=== PATIENT | male | born 1935 | race Two or more races ===

== ENCOUNTER 2016-05-01 07:12 | Day surgery (SDC) | payer OTHER ==
[2016-05-01] VITALS (12 sets, daily range): BP systolic 146–178; BP diastolic 75–99; PULSE 52–69; RESP 14–19; Ht 175.3 cm; Wt 106.3 kg
[~2016-05-01] VITALS: Ht 175.3 cm; Wt 106.3 kg
[~2016-05-01 07:12] MED LIST: ASPI81TA3 PO; CHOL2000 PO; DORZ10DR6 BOTH EYES; NITR0.4T6 SL
--- NOTE | 2016-05-01 08:09 | PREOPHP ---
DATE OF ADMISSION: 05/01/2016 HISTORY OF PRESENT ILLNESS: This 80-year-old patient is admitted for elective cataract surgery of t he right eye. The patient previously underwent cataract surgery of the left eye 5 months ago with g ood visual result. The patient also has a history of chronic open angle glaucoma controlled with Ti molol drops. The patient has had a history of myocardial infarctions in 2012. CURRENT MEDICATIONS 1. Aspirin, which was discontinued 1 week prior to surgery. 2. Timolol ophthalmic. PHYSICAL EXAMINATION: Visual acuity best corrected is 20/200 in the right eye and 20/40 in the left eye. Slit lamp examination reveals nuclear sclerotic and posterior subcapsular cataract in the rig ht eye. The left eye has a posterior chamber intraocular lens in appropriate position. Applanation tonometry is 15 mmHg in both eyes. Examination of the retina is within normal limits. DIAGNOSIS: Posterior subcapsular cataract, right eye. PLAN: Cataract extraction with lens implant, right eye. The risks and alternatives to the surgery have been discussed with the patient and patient has opted to proceed with surgery with the hopes of improvement of visual acuity leading to a greater ability to perform activities of daily living. Dictated By: MASON LEONE/RAYMOND Conf#: [id number] DID#: [id number]
[2016-05-01] MEDS ORDERED: DICLOFENAC 0.1% 2.5 ML OPH OPER SCH (09:00)
[2016-05-01] MEDS ORDERED: TROPICAMIDE 1% 2 ML OPH OPER SCH (09:00)
[2016-05-01] MEDS ORDERED: CIPROFLOXACIN 0.3% 2.5 ML OPH OPER SCH (09:00)
[2016-05-01] MEDS ORDERED: CYCLOPENTOLATE/PHENYLEPH 2 ML OPH OPER SCH (09:00)
[2016-05-01] MEDS ORDERED: BENA20TA48 PO (09:32)
[2016-05-01] MEDS ORDERED: METO75TA PO (09:32)
[2016-05-01] MEDS ORDERED: ATOR40TA68 PO (09:32)
[2016-05-01] MEDS ORDERED: PROPOFOL 20 ML ONE (10:15)
[2016-05-01] MEDS ORDERED: LIDOCAINE 2% (SDV) 5 ML INJ ONE (10:16)
[2016-05-01] MEDS ORDERED: ONDANSETRON 4 MG INJ IV PRN (10:30)
[2016-05-01] MEDS ORDERED: LABETALOL HCL 20MG INJ IV PRN (10:30)
[2016-05-01] MEDS ORDERED: ATROPINE 1 MG/10 ML SYRINGE IV PRN (10:30)
[2016-05-01] MEDS ORDERED: OXYCODONE/ACETAMINOPHEN (5/325) TAB PO PRN ×3 (10:30→13:00)
[2016-05-01] MEDS ORDERED: EPHEDrine SULFATE 50 MG/5 ML SYG IV PRN (10:30)
[2016-05-01] MEDS ORDERED: DIPHENHYDRAMINE 50 MG INJ IV PRN (10:30)
[2016-05-01] MEDS ORDERED: HYDROmorphONE (0.2 MG/ML) 10ML SYG IV PRN ×3 (10:30)
[2016-05-01] MEDS ORDERED: MIDAZOLAM 1 MG/ML 2 ML INJ IV PRN (10:30)
[2016-05-01] MEDS ORDERED: FENTAnyl 50 MCG/ML VIAL IV PRN ×2 (10:30)
[2016-05-01] MEDS ORDERED: morphine (1 MG/ML) 10ML SYRINGE IV PRN ×3 (10:30)
[2016-05-01] MEDS ORDERED: MEPERIDINE 25 MG INJ IV PRN (10:30)
[2016-05-01] MEDS ORDERED: hydrALAzine 20 MG INJ IV PRN (10:30)
[2016-05-01] MEDS ORDERED: CARBACHOL 0.01% 1.5 ML OPH INJ ONE (10:50)
[2016-05-01] MEDS ORDERED: LIDOCAINE 4% (MPF) 5 ML INJ ONE (10:50)
[2016-05-01] MEDS ORDERED: HYALURONATE/CHONDROITIN 1ML OPH INJ ONE (10:51)
[2016-05-01] MEDS ORDERED: DEXAMETHASONE 4 MG/ML 1 ML INJ ONE (10:51)
[2016-05-01] MEDS ORDERED: CARBACHOL 0.01% 1.5 ML OPH INJ IO ONE (11:00)
[2016-05-01] MEDS ORDERED: DEXAMETHASONE 4 MG/ML 1 ML INJ INJ ONE (11:00)
[2016-05-01] MEDS ORDERED: HYALURONATE/CHONDROITIN 1ML OPH INJ IO ONE (11:00)
[2016-05-01] MEDS ORDERED: CEFAZOLIN 1 GM INJ INJ ONE (11:00)
[2016-05-01] MEDS ORDERED: FENTAnyl 50 MCG/ML VIAL ONE (11:25)
--- NOTE | 2016-05-01 12:03 | OPR ---
DATE OF OPERATION: 05/01/2016 PREOPERATIVE DIAGNOSIS: Cataract, right eye. POSTOPERATIVE DIAGNOSIS: Cataract, right eye. OPERATION PERFORMED: Cataract extraction with lens implant, right eye. SURGEON: Mason Cohen MD ANESTHESIOLOGIST: Patel Keith MD PREOPERATIVE DIAGNOSIS: Cataract, right eye. POSTOPERATIVE DIAGNOSIS: Cataract, right eye. SURGEON: Mason Cohen MD ANESTHESIA: Local standby. ANESTHESIOLOGIST: Patel Keith MD OPERATION: Phacoemulsification with posterior chamber intraocular lens implant, right eye. PROCEDURE: The patient was brought to the operating room and placed on the table with an IV in plac e and the patient attached to an court recording monitor. Oxygen was given via face mask. After some intravenous sedation was administered, local anesthesia was given using Xylocaine 2% with epinephrine, mixed with Marcaine 0.5%. This was given in a lid block and retrobulbar injection. The patient was then prepped and draped in the usual sterile manner. A wire lid speculum was inserted between the lids of the right eye. A Superblade was used to enter t he anterior chamber at the corneoscleral limbus at the 10:30 o'clock position. A separate incision w as made using a 3.0-mm keratome which entered the corneoscleral junction at the 12 o'clock position. Through this 3-mm opening, an irrigating cystitome was introduced into the anterior chamber. The ch arian was filled with Viscoat and an anterior capsulotomy was performed. Balanced salt solution was then used for hydrodissection of the lens. A phacoemulsification handpiece was then brought into th e field and introduced into the anterior chamber. The lens nucleus was emulsified using a deep groov e and cracking the nucleus into quadrants. Following this, each quadrant was aspirated and emulsifie d at the pupillary margin. After this was completed, the irrigation/aspiration handpiece was brought to the field, introduced i nto the posterior chamber, and the lens cortical material was removed. A film remained on the purchasing officer ior capsule. This was vacuumed off to some extent using the kittitian setting on the irrigation aspira tion handpiece. However, some residual film remained in the central posterior capsule. If this is a visual problem, it will be dealt with using a Yag laser to perform a capsulotomy. When this was completed, additional Viscoat was injected into the anterior and posterior chambers. The 3-mm opening had its internal lips enlarged, and then the posterior chamber intraocular lens brain suring ____ diopters ([employer]) was then injected into the posterior chamber usin g the lens injector system. After the leading haptic was introduced into the capsular bag and the le ns optic was present in the center of the eye, the injector was removed and the trailing haptic was grasped with non-toothed forceps and introduced into the capsular fold superiorly. A Sinskey hook wa s then used to rotate the intraocular lens so that the lips were oriented in the horizontal meridian . One 10-0 nylon suture was placed across the wound. Prior to tying, the irrigation/aspiration handpiece was reintroduced into the anterior chamber to re move the Viscoat. Miochol was instilled to constrict the pupil, and then the 10-0 nylon suture was t ied. The ends were cut short and then the knot was buried. Then, 0.5 mL of dexamethasone and 0.5 mL of Ancef were injected into the sub-Tenon space in the infe rior fornix. Ciloxan drops were then placed on the surface of the eye. The speculum was removed and a patch was applied. The patient then left the operating room in satisfactory condition. Dictated By: MASON LEONE/RAYMOND Conf#: [id number] DID#: [id number]
== END 2016-05-01 15:00 | disposition home or self-care (01) ==
LOC: SDS 07:12
PROVIDERS: ATTEND Ophthalmology
DX: H25.11 Age-related nuclear cataract, right eye (principal); I10 Essential (primary) hypertension; I25.2 Old myocardial infarction; F32.9 Major depressive disorder, single episode, unspecified; N40.0 Benign prostatic hyperplasia without lower urinary tract symptoms
CPT/HCPCS: 66984; J0690; J1100; J3010; V2632; Z7512; Z7610

== ENCOUNTER 2016-05-16 14:12 | Emergency (ER) | payer OTHER ==
[~2016-05-16] VITALS: Ht 162.6 cm; Wt 107.0 kg
[~2016-05-16 14:12] MED LIST changes: +ATOR40TA68 PO; +BENA20TA48 PO; -CHOL2000 PO; -DORZ10DR6 BOTH EYES; +METO75TA PO
[2016-05-16 14:54] VITALS: Ht 162.6 cm; Wt 107.0 kg
--- NOTE | 2016-05-16 18:25 | RADRPT ---
PROCEDURE: X-RAY LEFT KNEE CLINICAL INDICATION: General pain, twisted knee. TECHNIQUE: Three views of the left knee are available for review. COMPARISON: None available FINDINGS: There is mild medial joint space narrowing and there are small osteophytes indicative of arthrosis. No evidence for joint effusion. No evidence for fracture or erosive change. There is mild patello femoral arthrosis seen as asymmetrical joint space narrowing and small osteophytes. IMPRESSION: 1. No evidence for fracture. 2. Mild patellofemoral medial compartment arthrosis. RPTAT: XX .Dashawn Jones MD, Date Time Electronically viewed and signed by .Dashawn Jones MD, on 05/16/2016 18:24 .T/
[2016-05-16] MEDS ORDERED: IBUP400T22 PO (18:35)
--- NOTE | 2016-05-16 18:39 | ERD ---
ER Documentation Chief Complaint Date/Time DATE: 05/16/16 TIME: 18:36 Chief Complaint left knee pain,verbalized he twisted it. HPI Patient is a 80-year-old male who presents after twisting his knee yesterday. He denies any fall. He denies any head injury or KO. He denies any preceding chest pain, dizziness, headache, or loss of balance. Pain is 8 out of 10. He is not taking any medication for this. He is able to ambulate slowly. ROS All systems reviewed and are negative except as per history of present illness. Medications Home Meds Active Scripts Ibuprofen* (Motrin*) 400 Mg Tab, 400 MG PO Q6H Y for PAIN AND OR ELEVATED TEMP, #30 TAB Prov:KEANU SANTAMARIA PA-C 05/16/16 Reported Medications Benazepril Hcl* (Benazepril Hcl*) 20 Mg Tablet, 20 MG PO BID, #60 TAB 05/01/16 Atorvastatin* (Atorvastatin*) 40 Mg Tablet, 40 MG PO QHS, #30 TAB 05/01/16 Metoprolol Tartrate (Metoprolol Tartrate) 75 Mg Tablet, 50 MG PO, TAB 05/01/16 Nitroglycerin* (Nitroglycerin* SL) 0.4 Mg Tab.subl, 0.4 MG SL Q5MIN Y for CHEST PAIN, BOTTLE 07/18/14 Aspirin* (Aspirin* Chew) 81 Mg Tab.chew, 81 MG PO DAILY, TAB.CHEW 07/18/14 Allergies Allergies: Coded Allergies: losartan (Verified Allergy, Severe, LIPS SWELLING, 05/16/16) PMhx/Soc History of Surgery: Yes (b/l eye catarct surgery , stent ) Anesthesia Reaction: No Hx Neurological Disorder: Yes (vertigo) Hx Respiratory Disorders: No Hx Cardiac Disorders: Yes (htn and hyperlipidemia with past heart attack 2012) Hx Psychiatric Problems: Yes (depression) Hx Miscellaneous Medical Probl: No Hx Alcohol Use: No Hx Substance Use: No Hx Tobacco Use: No Smoking Status: Never smoker FmHx Family History: No diabetes Physical Exam Vitals Vital Signs Date Time Temp Pulse Resp B/P Pulse Ox O2 Delivery O2 Flow Rate FiO2 05/16/16 14:54 97.8 75 18 158/93 98 Physical Exam General: well developed, well nourished, alert, nontoxic, no distress Head: normocephalic, atraumatic Neck: Supple, nontender, no lymphadenopathy, no midline tenderness Respiratory: Clear to auscaultation bilaterally, speaks in full sentences, no use of accesory muscles or labored breathing, no rales, ronchi, or wheezing Cardiovascular: RRR, No murmurs Back: no midline tenderness, no step offs or bony abnormalities, sensation to light touch in tact Extremities: Left knee: No erythema, no edema, no warmth, no tenderness throughout, sensation to light touch and intact, no bony abnormalities Procedures/MDM 80-year-old male has left knee pain after twisting it. He is neurovascular intact. There is no evidence of infection or septic joint. No evidence of DVT. X-ray was ordered which showed no acute fracture dislocation. Patient is able to be safely discharged home he was given copy of x-ray report as well as prescription for Motrin for pain. Recommended this patient follow up with her primary care doctor within 48 hours or return to the emergency room for any worsening of symptoms. However this time I do believe there is suitable for outpatient management. I answered all their questions and they agreed with the plan and were discharged home. Departure Diagnosis: Primary Impression: Knee sprain Condition: Stable Patient Instructions: Knee Sprain Additional Instructions: Call your primary care doctor TOMORROW for an appointment during the next 1-2 days.See the doctor sooner or return here if your condition worsens before your appointment time. KEANU SANTAMARIA PA-C May 16, 2016 18:39
[2016-05-16 19:48] VITALS: BP 142/87; PULSE 80; RESP 18; TEMP 98.4
[2016-05-16] MEDS ORDERED: HYDROCODONE/APAP (5/325) TAB PO ONE (20:00)
== END 2016-05-16 19:50 | disposition home or self-care (01) ==
LOC: FTE 14:12
DX: S83.92XA Sprain of unspecified site of left knee, initial encounter (principal); I10 Essential (primary) hypertension; X50.1XXA Overexertion from prolonged static or awkward postures, initial encounter; Y92.9 Unspecified place or not applicable; Z79.82 Long term (current) use of aspirin
CPT/HCPCS: 73562; Z7502; Z7610

== ENCOUNTER 2016-07-16 14:41 | Inpatient (IN) | payer OTHER ==
[~2016-07-16] VITALS: Ht 175.3 cm; Wt 104.0 kg
[~2016-07-16 14:41] MED LIST changes: +IBUP400T22 PO
[2016-07-16 17:49] LABS: ADD SCAN DIFF NO
[2016-07-16 17:52] LABS: BASOPHILS % 0.4 % (0.0-2.0); EOSINOPHILS # 0.1 10^3/ul (0.0-0.5); EOSINOPHILS % 1.6 % (0.0-7.0); HEMOGLOBIN 16.9 g/dl (14.0-18.0); LYMPHOCYTES # 1.5 10^3/ul (0.8-2.9); LYMPHOCYTES % 26.1 % (15.0-51.0); MEAN CORPUSCULAR HEMOGLOBIN 28.2 pg (29.0-33.0); MEAN CORPUSCULAR HGB CONC 32.5 g/dl (32.0-37.0); MEAN CORPUSCULAR VOLUME 86.8 fl (82.0-101.0); MEAN PLATELET VOLUME 9.6 fl (7.4-10.4); MONOCYTE # 0.4 10^3/ul (0.3-0.9); MONOCYTES % 7.9 % (0.0-11.0); NEUTROPHIL # 3.6 10^3/ul (1.6-7.5); NEUTROPHILS % 63.8 % (39.0-77.0); PLATELET COUNT 226 10^3/UL (140-415); RED BLOOD COUNT 5.99 10^6/ul (4.70-6.10); RED CELL DISTRIBUTION WIDTH 13.2 % (11.5-14.5); WHITE BLOOD COUNT 5.6 10^3/ul (4.8-10.8)
[2016-07-16 18:03] LABS: CHLORIDE 100 mmol/L (97-110)
[2016-07-16 18:04] LABS: POTASSIUM 3.7 mmol/L (3.5-5.1); SODIUM 142 mmol/L (135-144)
[2016-07-16 18:05] LABS: INR 0.93; PROTIME 12.5 Sec (12.2-14.2)
[2016-07-16 18:06] LABS: CREATININE 1.21 mg/dl (0.61-1.24); PARTIAL THROMBOPLASTIN TIME 30.7 Sec (25.0-35.0)
[2016-07-16 18:07] LABS: ANION GAP 17 (8-16); BLOOD UREA NITROGEN 20 mg/dl (7-20); CALCIUM 9.7 mg/dl (8.4-10.2); CARBON DIOXIDE 29 mmol/L (21-31); GLUCOSE 155 mg/dl (70-220)
[2016-07-16] MEDS ORDERED: AMLO-147 PO (18:07)
[2016-07-16] MEDS ORDERED: TAMS0.4C2 PO (18:07)
[2016-07-16] MEDS ORDERED: CHOL20003 PO (18:09)
[2016-07-16 18:20] LABS: TROPONIN-I < 0.012 ng/ml (0.00-0.12)
--- NOTE | 2016-07-16 18:59 | RADRPT ---
PROCEDURE: XR Chest. CLINICAL INDICATION: Shortness of breath. TECHNIQUE: A single portable view of the chest was obtained. COMPARISON: 11/22/2015 FINDINGS: The cardiomediastinal silhouette is within normal limits. The lung volumes are low with bibasilar co mpressive atelectasis. The remaining lungs and pleural spaces are clear. The soft tissues and osseo us structures are unremarkable. IMPRESSION: Low lung volumes with bibasilar compressive atelectasis. RPTAT: HPNM Physician Alexandra Date Time Electronically viewed and signed by Dave Hernandez Physician on 07/16/2016 18:59 /
[2016-07-16] MEDS ORDERED: ASPIRIN 325 MG TAB PO STA (19:40)
[2016-07-16] MEDS ORDERED: NITROGLYCERIN (SL) 0.4 MG TAB SL PRN (20:00)
[2016-07-16] MEDS ORDERED: ONDANSETRON 4 MG INJ IV PRN (20:00)
[2016-07-16] MEDS ORDERED: ACETAMINOPHEN 325 MG TAB PO PRN (20:00)
[2016-07-16 21:17] VITALS: Ht 175.3 cm; Wt 104.0 kg
[2016-07-16 21:30] VITALS: BP 131/83; RESP 20
[2016-07-16 21:39] VITALS: PULSE 72
[2016-07-17] VITALS (12 sets, daily range): BP systolic 118–155; BP diastolic 65–85; PULSE 50–62; RESP 16–18
[2016-07-17 00:53] LABS: CREATINE KINASE 198 IU/L (23-200)
[2016-07-17 01:08] LABS: CK-MB 3.61 ng/ml (0.0-2.4); TROPONIN-I < 0.012 ng/ml (0.00-0.12)
[2016-07-17] MEDS ORDERED: ASPIRIN 81 MG TAB PO ONE (03:00)
[2016-07-17] MEDS ORDERED: morphine 2 MG INJ IV PRN (03:00)
[2016-07-17] MEDS: ACETAMINOPHEN 325 MG TAB PO PRN ×2 (03:20→15:08)
[2016-07-17] MEDS ORDERED: ONDANSETRON 4 MG INJ IV PRN (03:30)
[2016-07-17] MEDS ORDERED: NITROGLYCERIN (SL) 0.4 MG TAB SL ONE (03:30)
[2016-07-17 06:56] LABS: ADD SCAN DIFF NO
[2016-07-17 07:02] LABS: BASOPHILS % 0.6 % (0.0-2.0); EOSINOPHILS # 0.2 10^3/ul (0.0-0.5); HEMATOCRIT 48.1 % (42.0-52.0); HEMOGLOBIN 15.5 g/dl (14.0-18.0); LYMPHOCYTES # 1.9 10^3/ul (0.8-2.9); LYMPHOCYTES % 37.5 % (15.0-51.0); MEAN CORPUSCULAR HEMOGLOBIN 28.1 pg (29.0-33.0); MEAN CORPUSCULAR HGB CONC 32.2 g/dl (32.0-37.0); MEAN CORPUSCULAR VOLUME 87.1 fl (82.0-101.0); MEAN PLATELET VOLUME 9.4 fl (7.4-10.4); MONOCYTE # 0.7 10^3/ul (0.3-0.9); NEUTROPHIL # 2.3 10^3/ul (1.6-7.5); NEUTROPHILS % 45.5 % (39.0-77.0); PLATELET COUNT 205 10^3/UL (140-415); RED BLOOD COUNT 5.52 10^6/ul (4.70-6.10); RED CELL DISTRIBUTION WIDTH 13.2 % (11.5-14.5); WHITE BLOOD COUNT 5.1 10^3/ul (4.8-10.8)
[2016-07-17 07:12] LABS: CHOL/HDL RATIO 4.5 RATIO; CREATININE 0.97 mg/dl (0.61-1.24); MAGNESIUM 2.3 mg/dl (1.7-2.5); PHOSPHORUS 2.8 mg/dl (2.5-4.9); POTASSIUM 4.1 mmol/L (3.5-5.1)
[2016-07-17 07:34] LABS: TROPONIN-I 0.012 ng/ml (0.00-0.12)
[2016-07-17 07:42] LABS: THYROID STIMULATING HORMONE 0.387 MIU/L (0.465-4.680)
[2016-07-17 07:48] LABS: CK-MB 2.87 ng/ml (0.0-2.4)
[2016-07-17] MEDS: ASPIRIN 81 MG TAB PO SCH ×2 (08:44→08:46)
--- NOTE | 2016-07-17 10:40 | HP ---
Date/Time of Note Date/Time of Note DATE: 07/17/16 TIME: 10:35 Assessment/Plan VTE Prophylaxis VTE Prophylaxis Intervention: heparin Lines/Catheters IV Catheter Type (from Nrsg): Peripheral IV Assessment/Plan Assessment/Plan IMPRESSION 1. CAD with stent in 2012 - trend trops - obtain 2D-echo and place cardiology consult - Aspirin, statin, BB and PRN nitro and morphine 2. HTN - cont meds and adjust as needed 3. hx of Depression - no acute issue 4. hx of DL - cont med - check fasting lipids HPI/ROS Admit Date/Time Admit Date/Time Jul 16, 2016 at 19:40 Hx of Present Illness patient is a 80 yo male with hx of CAD with stent in 2012, HTN, Depression and DL who presented to ER complaining of chest pain. Pain has been going on for last 4 days. It is sharp with no radiation. No associated N/V, SOB or diaphoresis. He said SL nitro usually helps, but this time only minimally and as such he decided to come to hospital. In ER, first trop is neg and EKG with no ST elevation or depression. PMH/Family/Social Past Surgical History Past Surgical Hx: other Social History Smoking Status: Unknown if ever smoked Exam/Review of Systems Vital Signs Vitals Vital Signs Date Time Temp Pulse Resp B/P Pulse Ox O2 Delivery O2 Flow Rate FiO2 07/17/16 08:38 62 07/17/16 07:42 97.8 18 134/77 95 07/16/16 21:02 Room Air 07/16/16 17:49 2 Intake and Output 07/16/16 07/16/16 07/17/16 15:00 23:00 07:00 Intake Total 600 ml Balance 600 ml Exam Constitutional: alert, oriented, well developed Head: atraumatic, normocephalic Eyes: EOMI, PERRL Respiratory: clear to auscultation, normal air movement Cardiovascular: nl pulses, regular rate and rhythm Gastrointestinal: non-tender, soft Extremities: normal pulses Labs Result Diagram: 07/17/1661407/17/16614 Medications Medications Current Medications Morphine Sulfate (morphine) 2 mg Q4H PRN IV CHEST PAIN; Start 07/17/16 at 03:00 Atorvastatin Calcium (Lipitor) 20 mg HS PO ; Start 07/17/16 at 21:00 Aspirin (Aspirin) 81 mg DAILY PO ; Start 07/17/16 at 09:00 Acetaminophen (Tylenol Tab) 650 mg Q6H PRN PO PAIN AND OR ELEVATED TEMP Last administered on 07/17/16t 03:20; Admin Dose 650 MG; Start 07/17/16 at 03:30 Ondansetron HCl (Zofran Inj) 4 mg Q6H PRN IV NAUSEA AND/OR VOMITING; Start 02/22 at 03:30 SCOTT ZHOU MD Jul 17, 2016 10:40
--- NOTE | 2016-07-17 16:23 | PN ---
Date/Time of Note Date/Time of Note DATE: 07/17/16 TIME: 16:18 Assessment/Plan VTE Prophylaxis VTE Prophylaxis Intervention: LMWH Lines/Catheters IV [facility] Saline Lock Assessment/Plan Chief Complaint/Hosp Course S-80-yr-M w 1 wk of cp-Rt-sided sharp nonradiating. Denies injury. Hurts to breathe. No diaphoresis nausea, edema, travel, injury. He takes a daily aspirin. O-vss, sinus rhythm. Poor R-wave progression through anterior septal leads. PE No pallor icterus adenopathy Regular, no rub no gallop CTAB bilat. No rash; no reproducible tenderness Bs+ overweight, nt nd, no r/r/g Ext no edema Back: No point tenderness or rash. A/p 1. Atypical chest pain. No evidence of ACS. Probable musculoskeletal/pleurisy pain. Try nonsteroidals. - no actual motrin allergy- took it for djd recently. 2. Chronic coronary disease. Stable cont medical management. 3. Upper back cyst. Outpt surgery referral 4. Chronic hypertension/dyslipidemia 5. Chronic depression 6. Metabolic syndrome 7. Chronic BPH 8. Subclinical hyperthyroidism? Problems: Exam/Review of Systems Vital Signs Vitals Vital Signs Date Time Temp Pulse Resp B/P Pulse Ox O2 Delivery O2 Flow Rate FiO2 07/17/16 16:09 97.8 68 18 146/85 95 07/16/16 21:02 Room Air 07/16/16 17:49 2 Intake and Output 07/16/16 07/16/16 07/17/16 15:00 23:00 07:00 Intake Total 600 ml Balance 600 ml Results Result Diagram: 07/17/16 0615 07/17/16 0615 Results 24 hrs Laboratory Tests Test 07/16/16 17:39 07/17/16 06:15 White Blood Count 5.6 5.1 Red Blood Count 5.99 5.52 Hemoglobin 16.9 15.5 Hematocrit 52.0 48.1 Mean Corpuscular Volume 86.8 87.1 Mean Corpuscular Hemoglobin 28.2 L 28.1 L Mean Corpuscular Hemoglobin Concent 32.5 32.2 Red Cell Distribution Width 13.2 13.2 Platelet Count 226 205 Mean Platelet Volume 9.6 9.4 Neutrophils % 63.8 45.5 Lymphocytes % 26.1 37.5 Monocytes % 7.9 13.0 H Eosinophils % 1.6 3.0 Basophils % 0.4 0.6 Nucleated Red Blood Cells % 0.0 0.0 Neutrophils # 3.6 2.3 Lymphocytes # 1.5 1.9 Monocytes # 0.4 0.7 Eosinophils # 0.1 0.2 Basophils # 0.0 0.0 Nucleated Red Blood Cells # 0.0 0.0 Prothrombin Time 12.5 Prothrombin Time Ratio 1.0 INR International Normalized Ratio 0.93 Activated Partial Thromboplast Time 30.7 Sodium Level 142 136 Potassium Level 3.7 4.1 Chloride Level 100 104 Carbon Dioxide Level 29 28 Anion Gap 17 H 8 # Blood Urea Nitrogen 20 16 Creatinine 1.21 0.97 Glucose Level 155 126 Calcium Level 9.7 9.0 Troponin I < 0.012 0.012 Hemoglobin A1c 5.9 Phosphorus Level 2.8 Magnesium Level 2.3 Creatine Kinase 153 Creatine Kinase Index 1.9 Creatinine Kinase MB (Mass) 2.87 H Triglycerides Level 115 Cholesterol Level 229 H LDL Cholesterol, Calculated 156 HDL Cholesterol 50 Cholesterol/HDL Ratio 4.5 Thyroid Stimulating Hormone (TSH) 0.387 L Medications Medications Current Medications Morphine Sulfate (morphine) 2 mg Q4H PRN IV CHEST PAIN; Start 07/17/16 at 03:00 Atorvastatin Calcium (Lipitor) 20 mg HS PO ; Start 07/17/16 at 21:00 Aspirin (Aspirin) 81 mg DAILY PO ; Start 07/17/16 at 09:00 Acetaminophen (Tylenol Tab) 650 mg Q6H PRN PO PAIN AND OR ELEVATED TEMP Last administered on 07/17/16t 15:08; Admin Dose 650 MG; Start 07/17/16 at 03:30 Ondansetron HCl (Zofran Inj) 4 mg Q6H PRN IV NAUSEA AND/OR VOMITING; Start 02/22 at 03:30 SIMON WHITEHEAD MD Jul 17, 2016 16:23
[2016-07-17] MEDS ORDERED: AL HYDROX/MG HYDROX/SIMETH 30 ML CUP PO PRN (16:30)
[2016-07-17] MEDS ORDERED: ALBUTEROL 18 GM INHALER INH PRN (16:30)
[2016-07-17] MEDS ORDERED: DOCUSATE SODIUM 100 MG CAP PO PRN (16:30)
--- NOTE | 2016-07-17 18:03 | RADRPT ---
Echocardiogram Report Patient Name: SCOTT CRAIG Gender: Male Date: 1935 Study Date: 17-Jul-2016 Research Development Director: Anton Segovia [facility] Location: [id number] Ref. Physician: SCOTT ZHOU Quality: Good Procedures: Transthoracic echocardiogram with complete 2D, M-Mode, and doppler examination. Indications: Chest Pain. 2D/M Mode Doppler Measurement Value Normal Ranges Measurement Value Normal Ranges LVIDd 2D 4.8 3.5 - 5.6 cm AV Peak John 1.4 m/sec LVIDs 2D 2.1 2.1 - 4.1 cm AV Peak PG 8.0 mmHg FS 2D 56.5 % LVOT Peak John 0.9 m/sec LVPWd 2D 1.1 0.6 - 1.1 cm LVOT Peak PG 3.0 mmHg IVSd 2D 1.1 0.6 - 1.1 cm MV E Peak John 0.5 m/sec IVS/LVPW 2D 1.1 MV A Peak John 0.9 m/sec AoR Diam 2D 2.8 2.0 - 3.7 cm MV E/A 0.6 LA/Ao 2D 1 0 - 1 MV Decel Time 306 msec EDV 2D 108.0 cm3 MV E/A 0.6 ESV 2D 8.9 cm3 LA Dimen 2D 4.0 2.3 - 4.0 cm Findings Left Ventricle: Normal left ventricular systolic function. Normal left ventricular cavity size. Mild concentric left ventricular hypertrophy. Ejection fraction is visually estimated at 65 %. Tissue Doppler/Mitral Doppler indices are consistent with impaired relaxation (Stage I diastolic dysfunction). Right Ventricle: Normal right ventricular size. Normal right ventricular systolic function. Left Atrium: There is mild enlargement of left atrium. Right Atrium: The right atrium is normal in size. Mitral Valve: Normal appearance and function of the mitral valve with trace physiologic regurgitation. Aortic Valve: No significant aortic stenosis or insufficiency. Aortic cusps appear mildly calcified. Tricuspid Valve: Normal appearance of the tricuspid valve. Unable to obtain RVSP due to minimal presence of tricuspid regurgitation. Pulmonic Valve: Pulmonic valve not well visualized. Pericardium: Normal pericardium with no significant pericardial effusion. Aorta: Normal aortic root. IVC: Normal size and normal respiratory collapse consistent with normal right atrial pressure. Conclusions 1.Normal left ventricular systolic function. Normal left ventricular cavity size. Mild concentric left ventricular hypertrophy. Ejection fraction is visually estimated at 65 %. Tissue Doppler/Mitral Doppler indices are consistent with impaired relaxation (Stage I diastolic dysfunction). 2.No significant valvular stenosis or regurgitation seen. 3.Unable to obtain RVSP due to minimal presence of tricuspid regurgitation. RA pressure is 3 mmHg. Electronically Signed By: Wilber Quevedo 17-Jul-2016 18:02:29 -0700 Patient Name: SCOTT CRAIG Study Date: 17-Jul-2016 [id number]
[2016-07-17] MEDS: METHOCARBAMOL 750 MG TAB PO SCH ×2 (18:08→20:07)
[2016-07-17] MEDS: AMLODIPINE 10 MG TAB PO SCH (18:09)
[2016-07-17] MEDS: ENOXAPARIN 40 MG/0.4 ML SYG SC SCH (18:10)
[2016-07-17] MEDS: ATORVASTATIN 20 MG TAB PO SCH (20:07)
--- NOTE | 2016-07-17 20:48 | RADRPT ---
PROCEDURE: XR Thoracic Spine. CLINICAL INDICATION: Thoracic spine pain. TECHNIQUE: AP and lateral views of the thoracic spine were obtained. Images reviewed on a PACS wor kstation. COMPARISON: Lower thoracic spine visualized on CT abdomen pelvis 07/20/2014 FINDINGS: The alignment of the thoracic spine is within normal limits. There are multilevel moderate discogen ic endplate changes. There is suggestion of anterior vertebral body height loss in the T11 vertebra l body, which is not visualized on the prior CT examination. The remaining vertebral body heights a ppear maintained. There are diffuse anterior osteophytes in the mid and lower thoracic spine with m ultilevel moderate narrowing of the intervertebral disc spaces. There are associated discogenic end plate changes in the mid and lower thoracic spine. The prior CT examination demonstrated moderate t o severe degenerate changes from T7-8 to T11-12. The neural foramina appear patent. The paraspinal soft tissues unremarkable. The visualized portions of the thorax are unremarkable. IMPRESSION: 1. 20% anterior vertebral body height loss and T11 vertebral body, which was not visualized on the prior CT examination 07/20/2014. CT of the thoracic spine is recommended for further evaluation. 2. 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 RPTAT: HGAS .Shaquille Pinto MD, MD Date Time Electronically viewed and signed by .Shaquille Pinto MD, on 07/17/2016 20:48 .S/
[2016-07-17] MEDS: IBUPROFEN 800 MG TAB PO PRN (22:32)
[2016-07-18] VITALS (11 sets, daily range): BP systolic 117–143; BP diastolic 63–83; PULSE 59–72; RESP 16–18
[2016-07-18 06:35] LABS: ADD SCAN DIFF NO
[2016-07-18 06:42] LABS: BASOPHILS % 0.5 % (0.0-2.0); EOSINOPHILS # 0.2 10^3/ul (0.0-0.5); EOSINOPHILS % 4.4 % (0.0-7.0); HEMATOCRIT 50.4 % (42.0-52.0); MEAN CORPUSCULAR HEMOGLOBIN 27.7 pg (29.0-33.0); MEAN CORPUSCULAR HGB CONC 31.7 g/dl (32.0-37.0); MEAN CORPUSCULAR VOLUME 87.2 fl (82.0-101.0); MEAN PLATELET VOLUME 9.7 fl (7.4-10.4); MONOCYTE # 0.4 10^3/ul (0.3-0.9); MONOCYTES % 9.5 % (0.0-11.0); NEUTROPHIL # 1.5 10^3/ul (1.6-7.5); NEUTROPHILS % 36.4 % (39.0-77.0); PLATELET COUNT 197 10^3/UL (140-415); RED BLOOD COUNT 5.78 10^6/ul (4.70-6.10); RED CELL DISTRIBUTION WIDTH 13.5 % (11.5-14.5); WHITE BLOOD COUNT 4.1 10^3/ul (4.8-10.8)
[2016-07-18 06:50] LABS: ALANINE AMINOTRANSFERASE 46 IU/L (13-69); ALBUMIN 3.6 g/dl (3.3-4.9); ALBUMIN/GLOBULIN RATIO 1.16; ALKALINE PHOSPHATASE 60 IU/L (42-121); ANION GAP 8 (8-16); ASPARTATE AMINO TRANSFERASE 44 IU/L (15-46); BILIRUBIN,INDIRECT 0.4 mg/dl (0-1.1); BILIRUBIN,TOTAL 0.4 mg/dl (0.2-1.3); BLOOD UREA NITROGEN 16 mg/dl (7-20); CALCIUM 8.9 mg/dl (8.4-10.2); CARBON DIOXIDE 28 mmol/L (21-31); CHLORIDE 105 mmol/L (97-110); CREATININE 0.93 mg/dl (0.61-1.24); GLUCOSE 100 mg/dl (70-220); MAGNESIUM 2.2 mg/dl (1.7-2.5); SODIUM 137 mmol/L (135-144); TOTAL PROTEIN 6.7 g/dl (6.1-8.1)
[2016-07-18 07:07] LABS: TROPONIN-I < 0.012 ng/ml (0.00-0.12)
[2016-07-18 07:19] LABS: TRIIODOTHYRONINE 1.15 ng/ml (0.97-1.69)
[2016-07-18] MEDS: ASPIRIN 81 MG TAB PO SCH (08:40)
[2016-07-18] MEDS: TAMSULOSIN (SR) 0.4 MG CAP PO SCH (08:40)
[2016-07-18] MEDS: IBUPROFEN 800 MG TAB PO PRN (08:40)
[2016-07-18] MEDS: METHOCARBAMOL 750 MG TAB PO SCH ×3 (08:40→21:02)
[2016-07-18] MEDS: AMLODIPINE 10 MG TAB PO SCH (08:43)
[2016-07-18] MEDS: ENOXAPARIN 40 MG/0.4 ML SYG SC SCH (08:53)
[2016-07-18] MEDS: ACETAMINOPHEN/CODEINE #3 TAB PO PRN ×2 (09:04→18:19)
--- NOTE | 2016-07-18 13:10 | PN ---
Date/Time of Note Date/Time of Note DATE: 07/18/16 TIME: 13:07 Assessment/Plan VTE Prophylaxis VTE Prophylaxis Intervention: LMWH Lines/Catheters IV Catheter Type (from Nrs): Saline Lock Assessment/Plan Chief Complaint/Hosp Course S- 07/17 80yrM w 1 wk of cp-Rt-sided sharp nonradiating. Denies injury. Hurts to breathe. No diaphoresis nausea, edema, travel, injury. takes daily asa. 07/18 moderate pain O-vss, sr. Poor R-wave progression through anterior septal leads. PE No pallor Reg, no m/r/g CTAB bilat. No rash; no reproducible tenderness Bs+ overweight, nt nd, no r/r/g Ext no edema Back: No point tenderness or rash. A/p 1. Atypical chest pain. No ACS. Probable related to thoracic fracture. Try nonsteroidals. - no actual motrin allergy- took it for djd recently. 2. Chr cad. Stable cont medical management. 3. Upper back cyst. Outpt surgery referral 4. Chr hypertension/dyslipidemia 5. Chr depression 6. Metabolic syndrome 7. Chr BPH 8. Subclinical hyperthyroidism? 9. Thoracic compression fracture. Osteoporotic. Stable treat pain. Obtain brace as needed. Dc home vs snf. Problems: Exam/Review of Systems Vital Signs Vitals Vital Signs Date Time Temp Pulse Resp B/P Pulse Ox O2 Delivery O2 Flow Rate FiO2 07/18/16 12:19 67 07/18/16 11:38 97.7 17 124/63 94 07/16/16 21:02 Room Air 07/16/16 17:49 2 Intake and Output 07/17/16 07/17/16 07/18/16 15:00 23:00 07:00 Intake Total 480 ml 460 ml 160 ml Balance 480 ml 460 ml 160 ml Results Result Diagram: 07/18/16 0545 07/18/16 0545 Results 24 hrs Laboratory Tests Test 07/18/16 05:45 07/18/16 05:49 White Blood Count 4.1 L Red Blood Count 5.78 Hemoglobin 16.0 Hematocrit 50.4 Mean Corpuscular Volume 87.2 Mean Corpuscular Hemoglobin 27.7 L Mean Corpuscular Hemoglobin Concent 31.7 L Red Cell Distribution Width 13.5 Platelet Count 197 Mean Platelet Volume 9.7 Neutrophils % 36.4 L Lymphocytes % 49.0 Monocytes % 9.5 Eosinophils % 4.4 Basophils % 0.5 Nucleated Red Blood Cells % 0.0 Neutrophils # 1.5 L Lymphocytes # 2.0 Monocytes # 0.4 Eosinophils # 0.2 Basophils # 0.0 Nucleated Red Blood Cells # 0.0 Sodium Level 137 Potassium Level 4.0 Chloride Level 105 Carbon Dioxide Level 28 Anion Gap 8 Blood Urea Nitrogen 16 Creatinine 0.93 Glucose Level 100 Hemoglobin A1c 5.9 Calcium Level 8.9 Magnesium Level 2.2 Total Bilirubin 0.4 Direct Bilirubin 0.00 Indirect Bilirubin 0.4 Aspartate Amino Transf (AST/SGOT) 44 Alanine Aminotransferase (ALT/SGPT) 46 Alkaline Phosphatase 60 Troponin I < 0.012 Total Protein 6.7 Albumin 3.6 Globulin 3.10 Albumin/Globulin Ratio 1.16 Lipase 104 Total Triiodothyronine 1.15 Free Thyroxine 0.96 Medications Medications Current Medications Morphine Sulfate (morphine) 2 mg Q4H PRN IV CHEST PAIN; Start 07/17/16 at 03:00 Atorvastatin Calcium (Lipitor) 20 mg HS PO Last administered on 07/17/16 20:07 ; Admin Dose 20 MG; Start 07/17/16 at 21:00 Aspirin (Aspirin) 81 mg DAILY PO Last administered on 07/18/16 08:40; Admin Dose 81 MG; Start 07/17/16 at 09:00 Acetaminophen (Tylenol Tab) 650 mg Q6H PRN PO PAIN AND OR ELEVATED TEMP Last administered on 07/17/16 15:08; Admin Dose 650 MG; Start 07/17/16 at 03:30 Ondansetron HCl (Zofran Inj) 4 mg Q6H PRN IV NAUSEA AND/OR VOMITING; Start 02/22 at 03:30 Ibuprofen (Motrin) 800 mg Q6H PRN PO MODERATE PAIN LEVEL 4-6 Last administered on 07/17/16 22:32; Admin Dose 800 MG; Start 07/17/16 at 16:30 Acetaminophen/ Codeine Phosphate (Tylenol No.3) 1 tab Q6H PRN PO PAIN Last administered on 07/18/16 09:04; Admin Dose 1 TAB; Start 07/18/16 at 08:00 Methocarbamol (Robaxin) 1,500 mg TID PO Last administered on 07/18/16 08:40; Admin Dose 1,500 MG; Start 07/17/16 at 16:30 Enoxaparin Sodium (Lovenox) 40 mg DAILY SC Last administered on 07/18/16 08:53 ; Admin Dose 40 MG; Start 07/17/16 at 16:30 Docusate Sodium (Colace) 100 mg BID PRN PO CONSTIPATION; Start 07/17/16 at 16: 30 Al Hydrox/Mg Hydrox/Simethicone (Mag-Al Plus) 30 ml Q6H PRN PO GASTROINTESTINAL UPSET; Start 07/17/16 at 16:30 Amlodipine Besylate (Norvasc) 10 mg DAILY PO Last administered on 07/18/16 08: 43; Admin Dose 10 MG; Start 07/17/16 at 16:30 Tamsulosin HCl (Flomax) 0.4 mg DAILY PO Last administered on 07/18/16 08:40; Admin Dose 0.4 MG; Start 07/18/16 at 09:00 SIMON WHITEHEAD MD Jul 18, 2016 13:10
[2016-07-18] MEDS ORDERED: HYDROmorphONE 2 MG TAB PO PRN (13:30)
--- NOTE | 2016-07-18 13:50 | PDOCDIS ---
Discharge Instructions DIAGNOSIS Discharge Diagnosis: t11 fracture CONDITION Patient Condition: Stable HOME CARE INSTRUCTIONS: Special Diet: low fat low soduim ACTIVITY: Activity Restrictions: Slowly Increase Activity Do not Drive FOLLOW UP/APPOINTMENTS Appointments PCP 1wSIMON Patterson MD Jul 18, 2016 13:50
[2016-07-18] MEDS ORDERED: IBUP800T25 PO (13:51)
--- NOTE | 2016-07-18 14:45 | DS ---
DATE OF ADMISSION: 07/16/2016 DATE OF DISCHARGE: 07/18/2016 PRIMARY CARE PHYSICIAN: Unknown. STEAM TABLE WORKER: None. DIAGNOSIS ON ADMISSION: Atypical chest pain. DIAGNOSES ON DISCHARGE: 1. Atypical chest pain. 2. Thoracic compression fracture status. 3. Deconditioning. 4. Chronic coronary artery disease. 5. Upper back cyst. 6. Chronic hypertension. 7. Chronic dyslipidemia. 8. Chronic depression. 9. Chronic BPH. 10. Subclinical hyperthyroidism. 11. Probable osteoporosis. HOSPITAL COURSE: A 80-year-old admitted with chest pain. Atypical, right-sided, sharp, nonradiatin g with pleurisy. No diaphoresis, nausea, edema, travel, injury. No known aggravating or relieving factors. Ruled out for acute coronary syndrome by enzymes, EKG, symptoms. Chest x-ray negative. E KG negative. On further evaluation, imaging, etc., he was found to have thoracic compression fractures. Probable osteoporotic. No warning signs or weight loss. Needs conservative management, and if this fails, consider kyphoplasty on the line. Will be seen by physical therapy and if needed DME will be arrang ed. Otherwise, he can go home on supportive care. In terms of coronary artery disease, will continue medical management. DISCHARGE PLAN: Home. Follow up with primary in 1 week. DIET: Cardiac. ACTIVITY: Weightbearing as tolerated. ALLERGIES: 1. LOSARTAN. 2. POTENTIALLY MOTRIN, BUT I DOUBT IT. THERE IS NO HISTORY OF RECENT ISSUES WITH HER MOTRIN RECENT LY. CONDITION: Stable. BARRIERS TO DISCHARGE: None. PENDING TESTS: None. FUNCTIONAL STATUS: The patient is awake, alert, agrees with plan of care. REASON FOR ADMISSION: Chest pain. CONTINUED MEDICATIONS: 1. Norvasc 10. 2. Flomax 0.4 daily. 3. Aspirin 81. 4. Vitamin D3 2000 daily. ALTERED MEDICATIONS: None. NEW MEDICATIONS: 1. Motrin 800 every 6 hours as needed. 2. Dilaudid 2 mg every 4 to 8 hours as needed. 3. Methocarbamol 1500 mg 3 times daily. 4. Senna-S 2 tablets daily. IMAGING STUDIES AND LABORATORIES: Chest x-ray: No acute process. X-ray of thoracic spine 20% ante rior vertebral body, body height loss, and T11 vertebral body. 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 CMP unremarkable. TSH 0.387, T4 0.9. Total T3 of 1.1. A1c of 5.9. Triglycerides 115, total of 229, LDL of 156, HDL of 50, troponins negative. INR 0.9. White cell count of 5, hemoglobin and hematocrit of 16 and 50, platelets of 197. Dictated By: SIMON LEMA/NTS Conf#: [id number] DID#: [id number]
[2016-07-18] MEDS: SENNA/DOCUSATE NA (8.6MG/50MG) TAB PO SCH (21:02)
[2016-07-18] MEDS: ATORVASTATIN 20 MG TAB PO SCH (21:02)
[2016-07-19] MEDS: ACETAMINOPHEN/CODEINE #3 TAB PO PRN (00:26)
[2016-07-19 00:31] VITALS: BP 136/87; RESP 18
[2016-07-19 08:03] VITALS: BP 142/83; RESP 20
[2016-07-19] MEDS: METHOCARBAMOL 750 MG TAB PO SCH ×3 (09:30→21:07)
[2016-07-19] MEDS: TAMSULOSIN (SR) 0.4 MG CAP PO SCH (09:30)
[2016-07-19] MEDS: ASPIRIN 81 MG TAB PO SCH (09:30)
[2016-07-19] MEDS: AMLODIPINE 10 MG TAB PO SCH (09:30)
[2016-07-19] MEDS: ENOXAPARIN 40 MG/0.4 ML SYG SC SCH (09:43)
[2016-07-19 19:24] VITALS: BP 130/67; RESP 16
[2016-07-19] MEDS: SENNA/DOCUSATE NA (8.6MG/50MG) TAB PO SCH (21:07)
[2016-07-19] MEDS: ATORVASTATIN 20 MG TAB PO SCH (21:07)
[2016-07-20 08:21] VITALS: BP 120/79; RESP 18
[2016-07-20] MEDS ORDERED: INFLUENZA VIRUS VACCINE 0.5 ML SYG IM* ONE (11:00)
[2016-07-20] MEDS ORDERED: PNEUMOCOCCAL VACCINE 0.5 ML INJ IM* ONE (11:00)
--- NOTE | 2016-07-20 11:04 | PN ---
Date/Time of Note Date/Time of Note DATE: 07/20/16 TIME: 11:02 Assessment/Plan VTE Prophylaxis VTE Prophylaxis Intervention: LMWH Lines/Catheters IV Catheter Type (from Nrs): Saline Lock Assessment/Plan Chief Complaint/Hosp Course S- 07/17 80yrM w 1 wk of cp-Rt-sided sharp nonradiating. Denies injury. Hurts to breathe. No diaphoresis nausea, edema, travel, injury. takes daily asa. 07/18 mod pain 413/14no events. Fairly stable. Requested snf- he Refuse SNF. Refused home assistance. discharge home with outpt physical therapy. High fall risk; he is aware of options but refused home health/snf. O-vss PE No pallor Reg, no m/r/g CTAB bilat. No rash; no reproducible tenderness Bs+ overweight, nt nd, no r/r/g Ext no edema Back: No point tenderness or rash. A/p 1. Atypical chest pain. No ACS. Probable related to thoracic fracture. Try nonsteroidals. - no actual motrin allergy- took it for djd recently. 2. Chr cad. Stable cont medical management. 3. Upper back cyst. Outpt surgery referral 4. Chr hypertension/dyslipidemia 5. Chr depression 6. Metabolic syndrome 7. Chr BPH 8. Subclinical hyperthyroidism? 9. Thoracic compression fracture. Osteoporotic. Stable treat pain. Obtain brace as needed. Dc home vs snf. Problems: Exam/Review of Systems Vital Signs Vitals Vital Signs Date Time Temp Pulse Resp B/P Pulse Ox O2 Delivery O2 Flow Rate FiO2 07/20/16 08:21 99.1 66 18 120/79 95 07/16/16 21:02 Room Air 07/16/16 17:49 2 Intake and Output 07/19/16 07/19/16 07/20/16 15:00 23:00 07:00 Intake Total 720 ml 200 ml Output Total 850 ml Balance -130 ml 200 ml Results Result Diagram: 07/18/16 0545 07/18/16 0545 Medications Medications Current Medications Morphine Sulfate (morphine) 2 mg Q4H PRN IV CHEST PAIN; Start 07/17/16 at 03:00 Atorvastatin Calcium (Lipitor) 20 mg HS PO Last administered on 07/19/16t 21:07 ; Admin Dose 20 MG; Start 07/17/16 at 21:00 Aspirin (Aspirin) 81 mg DAILY PO Last administered on 07/19/16 09:30; Admin Dose 81 MG; Start 07/17/16 at 09:00 Acetaminophen (Tylenol Tab) 650 mg Q6H PRN PO PAIN AND OR ELEVATED TEMP Last administered on 07/17/16 15:08; Admin Dose 650 MG; Start 07/17/16 at 03:30 Ondansetron HCl (Zofran Inj) 4 mg Q6H PRN IV NAUSEA AND/OR VOMITING; Start 02/22 at 03:30 Ibuprofen (Motrin) 800 mg Q6H PRN PO MODERATE PAIN LEVEL 4-6 Last administered on 07/17/16 22:32; Admin Dose 800 MG; Start 07/17/16 at 16:30 Acetaminophen/ Codeine Phosphate (Tylenol No.3) 1 tab Q6H PRN PO PAIN Last administered on 07/19/16 00:26; Admin Dose 1 TAB; Start 07/18/16 at 08:00 Methocarbamol (Robaxin) 1,500 mg TID PO Last administered on 07/19/16 21:07; Admin Dose 1,500 MG; Start 07/17/16 at 16:30 Enoxaparin Sodium (Lovenox) 40 mg DAILY SC Last administered on 07/19/16 09:43 ; Admin Dose 40 MG; Start 07/17/16 at 16:30 Al Hydrox/Mg Hydrox/Simethicone (Mag-Al Plus) 30 ml Q6H PRN PO GASTROINTESTINAL UPSET; Start 07/17/16 at 16:30 Amlodipine Besylate (Norvasc) 10 mg DAILY PO Last administered on 07/19/16 09: 30; Admin Dose 10 MG; Start 07/17/16 at 16:30 Tamsulosin HCl (Flomax) 0.4 mg DAILY PO Last administered on 07/19/16 09:30; Admin Dose 0.4 MG; Start 07/18/16 at 09:00 Senna/Docusate Sodium (Senokot-S) 2 tab HS PO Last administered on 07/19/16 21 :07; Admin Dose 2 TAB; Start 07/18/16 at 21:00 Hydromorphone HCl (Dilaudid) 2 mg Q4H PRN PO PAIN; Start 07/18/16 at 13:30 Pneumococcal Polyvalent Vaccine (Pneumovax-23) 0.5 ml ONCE ONCE IM* ; Start at 11:00; Stop 07/20/16 at 11:01; Status UNV Influenza Virus Vaccine (Fluzone) 0.5 ml ONCE ONCE IM* ; Start 07/20/16 at 11:00 ; Stop 07/20/16 at 11:01; Status UNV SIMON WHITEHEAD MD Jul 20, 2016 11:04
[2016-07-20] MEDS: METHOCARBAMOL 750 MG TAB PO SCH ×2 (11:14→13:00)
[2016-07-20] MEDS: TAMSULOSIN (SR) 0.4 MG CAP PO SCH (11:14)
[2016-07-20] MEDS: ASPIRIN 81 MG TAB PO SCH (11:14)
[2016-07-20] MEDS: AMLODIPINE 10 MG TAB PO SCH (11:14)
[2016-07-20] MEDS: ENOXAPARIN 40 MG/0.4 ML SYG SC SCH (11:26)
--- NOTE | 2016-07-20 11:30 | DS ---
DATE OF ADMISSION: 07/16/2016 DATE OF DISCHARGE: 07/20/2016 ADDENDUM TO DISCHARGE SUMMARY: The patient came to the hospital and was reevaluated for disposition. Refused home health, refused SNF. Will discharge home with outpatient physical therapy. He is a high fall risk and aware of risk of fall and increased comorbidities, but we have no other options, the patient refused SNF or home health. See original discharge dictation for summary. Will receive insulin and flu shot if available. Shingles vaccine not available here. I gave him a prescription. 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 Dictated By: SIMON LEMA/NTS Conf#: [id number] DID#: [id number]
== END 2016-07-20 13:50 | disposition home or self-care (01) | DRG 313 ==
LOC: E/R 14:41 → MS4 19:40 → MS2 07-19 00:24
PROVIDERS: ADMIT Internal Medicine; ATTEND Internal Medicine
PROC: 3E0234Z Introduction of Serum, Toxoid and Vaccine into Muscle, Percutaneous Approach (ICD-10-PCS; principal; 2016-07-20)
DX: R07.89 Other chest pain (principal); I25.10 Atherosclerotic heart disease of native coronary artery without angina pectoris; E88.81 Metabolic syndrome and other insulin resistance; M80.08XA Age-related osteoporosis with current pathological fracture, vertebra(e), initial encounter for fracture; Z95.5 Presence of coronary angioplasty implant and graft; I10 Essential (primary) hypertension; E78.5 Hyperlipidemia, unspecified; F32.9 Major depressive disorder, single episode, unspecified; N40.0 Benign prostatic hyperplasia without lower urinary tract symptoms; E05.90 Thyrotoxicosis, unspecified without thyrotoxic crisis or storm; Z23 Encounter for immunization
CPT/HCPCS: 71010; 72072; 80048; 80053; 80061; 82306; 82550; 82553; 83036; 83690; 83735; 84100; 84439; 84443; 84480; 84484; 85025; 85610; 85730; 90686; 90732; 93005; 93306; 97163; 97530; J1650